=== PATIENT | male | born 1960 | race Caucasian/White ===

== ENCOUNTER 2025-06-24 02:43 | Emergency (ER) | payer BC ==
[2025-06-24 03:19] LABS: BASOPHILS ABSOLUTE AUTO 0.07 K/uL (0.00-0.10); BASOPHILS PERCENT AUTO 0.3 % (0.1-1.3); EOSINOPHILS ABSOLUTE AUTO 0.04 K/uL (0.00-0.40); EOSINOPHILS PERCENT AUTO 0.2 % (0.0-5.4); IMMATURE GRAN ABSOLUTE AUTO 0.23 K/uL (0.00-0.23); IMMATURE GRAN PERCENT AUTO 1.0 % (0.0-0.7); LYMPHOCYTES ABSOLUTE AUTO 1.69 K/uL (0.8-3.3); LYMPHOCYTES PERCENT AUTO 7.4 % (11.4-47.7); MONOCYTES ABSOLUTE AUTO 1.00 K/uL (0.20-0.90); MONOCYTES PERCENT AUTO 4.4 % (3.3-12.6); NEUTROPHILS ABSOLUTE AUTO 19.92 K/uL (1.0-7.6); NEUTROPHILS PERCENT AUTO 86.7 % (40.0-78.1); PLATELET COUNT,PLT 255 K/uL (130-375); RED BLOOD CELL COUNT 4.72 M/uL (4.14-5.76); WHITE BLOOD CELL COUNT,WBC 23.0 K/uL (3.2-11.0)
[2025-06-24 03:40] LABS: A/G RATIO 1.3 (1.2-2.2); ALANINE AMINOTRANSFERASE,ALT 31 U/L (12-78); ASPARTATE AMNIOTRANSFERASE,AST 38 U/L (15-37); BILIRUBIN TOTAL 0.6 mg/dL (0.2-1.0); BLOOD UREA NITROGEN,BUN 13 mg/dL (7-18); CARBON DIOXIDE,CO2 28 mmol/L (21-32); CHLORIDE,CL 100 mmol/L (100-108); CREATININE 1.3 mg/dL (0.8-1.3); EST CRCL DRUG DOSING (CG) 64.67 mL/min; ESTIMATED GFR 62 mL/min (>60); GLUCOSE RANDOM 164 mg/dL (74-106); PROTEIN TOTAL,TP 7.6 g/dL (6.4-8.2); SODIUM,NA 140 mmol/L (140-148)
[2025-06-24 03:46] LABS: POTASSIUM,K 2.7 mmol/L (3.6-5.2)
[2025-06-24] MEDS: Potassium Chloride 20 MEQ in Premix Bag 1 BAG IV ONE (06:49)
[2025-06-24] MEDS: Lactated Ringers 1,000 ML IV ONE (06:49)
[2025-06-24] MEDS: Potassium Chloride 20 MEQ Tab.ER PO ONE (06:50)
[2025-06-24 08:46] LABS: AMPHETAMINES SCREEN, URINE NEGATIVE (NEGATIVE); METHADONE SCREEN, URINE NEGATIVE (NEGATIVE); METHAMPHETAMINES SCREEN, URINE NEGATIVE (NEGATIVE); OXYCODONE SCREEN,URINE NEGATIVE (NEGATIVE); PROPOXYPHENE SCREEN,URINE NEGATIVE (NEGATIVE); THC SCREEN,URINE 50 NG/ML PRESUMPTIVE POSITIVE (NEGATIVE)
[2025-06-24] MEDS ORDERED: Naloxone 0.4 MG/ML SDV IVPUSH PRN (08:50)
== END 2025-06-24 09:37 ==
LOC: JP.ED 02:43
DX: S22.41XA Multiple fractures of ribs, right side, initial encounter for closed fracture (principal); S27.331A Laceration of lung, unilateral, initial encounter; Z79.01 Long term (current) use of anticoagulants; Z79.899 Other long term (current) drug therapy; W10.9XXA Fall (on) (from) unspecified stairs and steps, initial encounter
CPT/HCPCS: 36415; 70450; 71250; 72125; 74176; 76377; 80053; 80305; 80307; 83605; 85025; 96365; 96366; 96375; 99285; A9270; J1171; J3480; J7120